=== PATIENT | female | born 1975 | race Caucasian/White ===

== ENCOUNTER 2016-10-31 13:12 | Day surgery (SDC) | payer BC, MEDICAID ==
[2016-10-28 16:24] VITALS: BMI 25.0
[~2016-10-31] VITALS: Ht 165.1 cm; Wt 73.0 kg
[2016-10-31] VITALS (10 sets, daily range): BP systolic 98–113; BP diastolic 49–74; PULSE 72–95; RESP 12–19; Ht 165.1 cm; Wt 73.0 kg
[~2016-10-31 13:12] MED LIST: BUPIVACAINE 0.25%/EPI (SDV) 30 ML INJ ONE
[2016-10-31] MEDS ORDERED: SOD CHLORIDE 0.9% 1,000 ML IV ONE (13:30)
[2016-10-31] MEDS ORDERED: CEFAZOLIN 1 GM/50 ML (PMX) 50 ML IVPB ONE (13:30)
[2016-10-31 14:06] LABS: BASOPHILS % 0.5 % (0.0-2.0); HEMATOCRIT 42.2 % (37.0-47.0); HEMOGLOBIN 14.3 g/dl (12.0-16.0); LYMPHOCYTES # 2.4 10^3/ul (0.8-2.9); LYMPHOCYTES % 26.4 % (15.0-51.0); MEAN CORPUSCULAR HEMOGLOBIN 30.2 pg (29.0-33.0); MEAN CORPUSCULAR HGB CONC 33.9 g/dl (32.0-37.0); MEAN CORPUSCULAR VOLUME 88.9 fl (82.0-101.0); MEAN PLATELET VOLUME 10.8 fl (7.4-10.4); MONOCYTE # 0.7 10^3/ul (0.3-0.9); NEUTROPHIL # 5.9 10^3/ul (1.6-7.5); NEUTROPHILS % 65.1 % (39.0-77.0); PLATELET COUNT 201 10^3/UL (140-440); RED BLOOD COUNT 4.75 10^6/ul (4.20-5.40); RED CELL DISTRIBUTION WIDTH 13.1 % (11.5-14.5)
[2016-10-31 14:07] LABS: INR 0.91; PROTIME 12.2 Sec (12.2-14.2)
[2016-10-31 14:09] LABS: CONDITION 1
[2016-10-31 14:18] LABS: CALCIUM 9.3 mg/dl (8.4-10.2); CREATININE 0.75 mg/dl (0.44-1.00)
--- NOTE | 2016-10-31 15:09 | HPN ---
Date/Time of Note Date/Time of Note DATE: 10/31/16 TIME: 15:09 Interval H&P Admission Note Pt. seen H&P reviewed: No system changes AURELIO CARL MD Oct 31, 2016 15:09
[2016-10-31] MEDS ORDERED: FENTAnyl 50 MCG/ML VIAL ONE (15:12)
[2016-10-31] MEDS ORDERED: PROPOFOL 20 ML ONE (15:12)
[2016-10-31] MEDS ORDERED: MIDAZOLAM 1 MG/ML 2 ML INJ ONE (15:12)
[2016-10-31] MEDS ORDERED: LIDOCAINE 1%/EPI 30 ML INJ ONE (15:15)
[2016-10-31] MEDS ORDERED: CEFAZOLIN 1 GM INJ ONE (15:29)
[2016-10-31] MEDS ORDERED: PHENYLephrine (100 MCG/ML) 5ML SYG ONE (15:41)
[2016-10-31] MEDS ORDERED: BUPIVACAINE 0.25%/EPI (SDV) 30 ML INJ ONE (15:41)
[2016-10-31] MEDS ORDERED: ONDANSETRON 4 MG INJ ONE (15:42)
[2016-10-31] MEDS ORDERED: DEXAMETHASONE 4 MG/ML 1 ML INJ ONE (15:42)
[2016-10-31] MEDS ORDERED: KETOROLAC 30 MG INJ IV PRN (16:30)
[2016-10-31] MEDS ORDERED: ONDANSETRON 4 MG INJ IV PRN (16:30)
[2016-10-31] MEDS ORDERED: HYDROCODONE/APAP (5/325) TAB PO PRN (16:30)
[2016-10-31] MEDS ORDERED: HYDROmorphONE (0.2 MG/ML) 10ML SYG IV ONE (16:59)
[2016-10-31] MEDS ORDERED: HYDROmorphONE (0.2 MG/ML) 10ML SYG IV PRN ×3 (17:00)
--- NOTE | 2016-10-31 18:58 | OPR ---
DATE OF OPERATION: 10/31/2016 PREOPERATIVE DIAGNOSIS: Soft tissue mass, lower back. POSTOPERATIVE DIAGNOSIS: Soft tissue mass, lower back. OPERATION PERFORMED: Excision soft tissue mass of lower back 8 cm. SURGEON: Rafael Perez MD. ATTENDING RADIOLOGIST: None. ANESTHESIA: General LMA. ANESTHESIOLOGIST: TEREZA BARON DO. FLUIDS: Crystalloid. ESTIMATED BLOOD LOSS: Minimal. SPECIMEN: Soft tissue mass of lower back. INDICATIONS FOR SURGERY: Patient is a 41-year-old female who presented to the office complaining of a painful mass of the soft tissues of the lower back. She was, therefore, scheduled for excision f or symptom relief and definitive pathological diagnosis. All risks and benefits of the procedure in cluding but not limited to wound infection, excessive bleeding, postoperative seroma/hematoma format ion, mass recurrence, etc. were all explained to the patient in full detail. She fully understood a nd wished to proceed with the procedure. Informed consent was therefore obtained. Patient was brought to the operating room and placed supine on the operating table. Bilateral seque ntial compression devices were placed on both lower extremities and a dose of broad spectrum periope rative intravenous antibiotics was given. After the induction of smooth general anesthesia, the pat ient was positioned in the right lateral decubitus position with the left side up. The mass of the lower back was marked and confirmed with the patient preoperatively in the holding area. The patien t's back was then prepped and draped in standard surgical fashion. After performance of the surgica l time out, 0.25% Marcaine with epinephrine was infiltrated in a radial fashion creating a block jen und the area of the mass. An incision was then made over the mass using a 15 blade scalpel. Incisi on was carried down through the skin and dermis into the subcutaneous tissues using the scalpel. Us ing Metzenbaum scissors, dissection was then done around the area of the mass circumferentially. Th e mass appeared consistent with a lipoma and was transected at its base using Bovie electrocautery a nd then passed off the field as specimen. It measured approximately 8 cm in maximal dimension. Hem ostasis was then inspected for and noted to be adequate. The wound cavity was irrigated with copiou s amounts of saline and the irrigant returned clear. At this point, the wound was then closed in la yers using interrupted 3-0 Vicryl sutures for the dermal layer. Skin was reapproximated using 4-0 M onocryl suture in subcuticular fashion. The incision was then cleaned and Dermabond was applied, an d the patient was awoke from anesthesia and transported to the recovery room in stable condition. All counts were correct at the end of the case x2. Dictated By: RAFAEL ROE/LAURENCE Conf#: [id number] DID#: [id number]
[2016-10-31] MEDS ORDERED: IBUPROFEN 600 MG TAB PO PRN (22:00)
== END 2016-10-31 18:19 | disposition home or self-care (01) ==
LOC: SDS 13:12
PROVIDERS: ATTEND Surgery
DX: D17.1 Benign lipomatous neoplasm of skin and subcutaneous tissue of trunk (principal)
CPT/HCPCS: 11406; 12031; 80048; 84703; 85025; 85610; 85730; 88304; J0690; J1100; J1170; J1885; J2250; J2405; J3010; Z7512; Z7610; J2370